=== PATIENT | male | born 1960 | race Two or more races ===

== ENCOUNTER 2017-07-08 12:28 | Observation (INO) | payer BC ==
--- NOTE | 2017-07-08 12:39 | EDPHY ---
HPI/HX/ROS/PE/MDM Narrative: CHIEF COMPLAINT: Left leg deformity after ski accident HISTORY OF PRESENT ILLNESS: The patient is a 57 y/o male arriving via EMS after a helmeted ski accident this afternoon. He was skiing at [place] when his left ski got caught. His leg twisted and broke. It originally was at a 90 degree angle. He was able to straighten it. He was in 10 out of 10 pain but improved slightly with pain medication. He denies striking his head, headache, neck pain, chest pain, difficulty breathing, any other injuries, or any other associated symptoms. He does not take anticoagulants. Patient was otherwise well prior to the event. He currently denies any chest pain or shortness of breath. No headache. No nausea or vomiting. No abdominal complaints. No upper extremity pain. REVIEW OF SYSTEMS: Aside from elements discussed in the HPI, a comprehensive 10-point review of systems was reviewed and is negative. PAST MEDICAL HISTORY: Fracture right patella in 1990 SOCIAL HISTORY: Skier, lives in [place], works at [employer] VITAL SIGNS: Reviewed by me GENERAL: Well-developed, well-nourished, in no respiratory distress. Clearly in pain. HEENT: Atraumatic. Face is atraumatic. Eyes: MIGUEL, EOMI. No icterus, no injection. Mouth: moist mucous membranes. No erythema or lesions. Neck: supple with no adenopathy. Nontender to palpation. LUNGS: Clear to auscultation bilaterally, no wheezes, rhonchi or rales. CHEST: No chest wall tenderness. CARDIAC: Regular rate and rhythm, no rubs, murmurs or gallops. ABDOMEN: Soft, nontender, nondistended, bowel sounds normal. BACK: No CVA tenderness. EXTREMITIES: Left lower extremity with a visible tib-fib deformity. Significant swelling over the proximal tib-fib area. Abrasions and contusion noted. No open laceration. Distal pulses are 2+ dorsalis pedis and posterior tibial. NEURO: Alert and oriented, grossly nonfocal. SKIN: Warm and dry, no rash. PSYCHIATRIC: Normal mentation, no agitation. (Janett Vick) ED Course: The patient presents with an obvious tib-fib deformity after a ski accident. He denies any other issues. X-ray shows a spiral fracture to the upper 1/3 of the tibia and fibula. Dr. Koch, orthopedic surgery, was consulted. He requests CT scan. Plan for ex fix. Patient's fracture was splinted and aligned. Please see procedure note from GAURANG Ellison Patient was admitted to the orthopedic service for isolated lower extremity trauma. (Janett Vick) MDM: 1:25 p.m.: Phone consultation with Dr. Valadez who reviewed the patient's images remotely, he would like to take the patient to the operating room for an external fixation later today, requested CT imaging. Patient remains NPO since 5:00 a.m. Today. Patient will be splinted for comfort measures. Procedure: Splint A posterior Ortho Glass long leg splint was applied by ER orthotic technician. After application of the splint I returned and re-examined the patient. The splint was adequately immobilizing the joint and distal to the splint the patient's circulation and sensation were intact. Patient shows no signs of compartment syndrome. Ice packs applied to fracture site (Roger Emmanuel) - Data Points Imaging Results: Imaging Impressions Tibia/Fibula X-Ray 07/08/17 12:36 Impression: Proximal tibial and fibular shaft fractures. Suspect medial tibial spine unstable fracture. Chest X-Ray 07/08/17 13:13 Impression: No acute findings in the chest. Medications Given: Discontinued Medications Fentanyl (Sublimaze) 100 mcg IVP EDNOW ONE Stop: 07/08/17 13:00 Last Admin: 07/08/17 13:01 Dose: 100 mcg Hydromorphone HCl (Dilaudid) 1 mg IVP EDNOW ONE Stop: 07/08/17 13:14 Last Admin: 07/08/17 13:27 Dose: 1 mg Ondansetron HCl (Zofran) 4 mg IVP EDNOW ONE Stop: 07/08/17 13:15 Last Admin: 07/08/17 13:27 Dose: 4 mg General Initial Vital Signs: Initial Vital Signs Temperature (C) 36.7 C 07/08/17 13:03 Heart Rate 79 07/08/17 13:03 Respiratory Rate 18 07/08/17 13:03 Blood Pressure 132/77 H 07/08/17 13:03 O2 Sat (%) 95 07/08/17 13:03 O2 Delivery Mode Room Air Allergies/Adverse Reactions: No Known Allergies Allergy (Unverified 07/08/17 13:03) Home Medications: Medication Instructions Recorded Herbals/Supplements -Info Only 1 ea PO DAILY 07/08/17 Ibuprofen [Motrin (*)] 200 mg PO DAILY PRN 07/08/17 celeCOXIB [Celebrex (*)] 200 mg PO DAILY PRN 07/08/17 Departure - Departure Disposition: [facility] Acute Clinical Impression: Skiing accident Qualifiers: Encounter type: initial encounter Qualified Code(s): V00.328A - Other snow-ski accident, initial encounter Fracture of left tibia and fibula Qualifiers: Encounter type: initial encounter Fracture type: closed Qualified Code(s): S82.202A - Unspecified fracture of shaft of left tibia, initial encounter for closed fracture Condition: Fair Report Scribed for: Janett Vick Report Scribed by: Renata Mahmood Date of Report: 07/08/17 Time of Report: 13:10 Physician Review and Approval Statement: Portions of this note were transcribed by a biomedical field service engineer. I personally performed a history, physical exam, medical decision making, and confirmed accuracy of information the transcribed note.
[2017-07-08] MEDS ORDERED: fentaNYL 100 MCG/2 ML INJ ONE ×2 (12:47→17:17)
[2017-07-08] MEDS ORDERED: fentaNYL 100 MCG/2 ML INJ IVP ONE (12:59)
[2017-07-08] MEDS ORDERED: HYDROmorphONE/DILAUDID 1 MG/ML INJ IVP ONE (13:13)
[2017-07-08] MEDS ORDERED: ONDANSETRON 4 MG/2 ML VIAL IVP ONE (13:14)
[2017-07-08 14:17] LABS: PLATELET COUNT 206 10^3/uL (150-400)
--- NOTE | 2017-07-08 14:26 | CPEKG ---
Heart Rate: 71 RR Interval: 845 P-R Interval: 188 QRSD Interval: 82 QT Interval: 404 QTC Interval: 439 P [place]: 71 QRS [place]: 66 T Wave [place]: 54 EKG Severity - NORMAL ECG - EKG Impression: SINUS RHYTHM Electronically Signed By: Po Reyes 10-Jul-2017 07:19:30
[2017-07-08 14:28] LABS: INR 1.12 (0.83-1.16); PROTIME(PATIENT) 14.6 SEC (12.0-15.0)
[2017-07-08] MEDS ORDERED: ONDANSETRON DISINTEGRATING 4 MG TAB PO PRN (15:46)
--- NOTE | 2017-07-08 15:52 | CPEKG ---
Heart Rate: 69 RR Interval: 870 P-R Interval: 180 QRSD Interval: 80 QT Interval: 400 QTC Interval: 429 P [place]: 61 QRS [place]: 53 T Wave [place]: 36 EKG Severity - NORMAL ECG - EKG Impression: SINUS RHYTHM EKG Impression: Unchanged from 1424 Electronically Signed By: Po Reyes 08-Jul-2017 19:17:44
[2017-07-08] MEDS ORDERED: LR 1,000 ML IV SCH (16:00)
[2017-07-08] MEDS: ONDANSETRON 4 MG/2 ML VIAL IVP PRN (16:04)
[2017-07-08] MEDS ORDERED: ceFAZolin 2 GM/SWFI 2 GM/20 ML SYR IVP ONE (16:21)
[2017-07-08] MEDS ORDERED: LR 1,000 ML IV ONE (16:22)
[2017-07-08] MEDS ORDERED: BUPIVACAINE 0.5% 30 ML SDV ONE (16:39)
[2017-07-08] MEDS ORDERED: BACITRACIN 50,000 UNITS/10 ML SYR IRR ONE (16:40)
[2017-07-08] MEDS ORDERED: POLYMYXIN B SULFATE 500,000 UNIT/10 ML SYR IRR ONE (16:40)
[2017-07-08] MEDS ORDERED: PROPOFOL/EMULSION 500 MG/50 ML BOTTLE IV ONE (17:17)
[2017-07-08] MEDS ORDERED: MIDAZOLAM 2 MG/2 ML VIAL ONE (17:25)
[2017-07-08] MEDS ORDERED: SCOPOLAMINE HYDROBROMIDE 1 MG/3 DAYS PATCH TD ONE (17:25)
--- NOTE | 2017-07-08 17:31 | PDHPUP ---
History & Physical Update H&P update statement: This history and physical update is based on an assessment of the patient which was completed after admission or registration (within 24 hours), but prior to the surgery/procedure. H&P update: H&P reviewed & patient examined, no change in patient's condition since H&P completed
[2017-07-08] MEDS ORDERED: ACETAMINOPHEN 500 MG TAB PO PRN (18:11)
[2017-07-08] MEDS ORDERED: DEXAMETHASONE 4 MG/ML VIAL IVP PRN (18:11)
[2017-07-08] MEDS ORDERED: MEPERIDINE 25 MG/ML SYR IVP PRN (18:11)
[2017-07-08] MEDS ORDERED: OXYCODONE/APAP 5/325 TAB PO PRN (18:11)
[2017-07-08] MEDS ORDERED: fentaNYL 100 MCG/2 ML INJ IVP PRN (18:11)
[2017-07-08] MEDS ORDERED: ONDANSETRON 4 MG/2 ML VIAL IVP PRN (18:11)
[2017-07-08] MEDS ORDERED: HYDROCODONE/APAP 5/325 TAB PO PRN (18:11)
[2017-07-08] MEDS ORDERED: ALBUTEROL 3 ML DEYVIAL IH PRN (18:11)
[2017-07-08] MEDS ORDERED: PROMETHAZINE HCL 25 MG/ML INJ IVP PRN (18:11)
[2017-07-08] MEDS ORDERED: NALOXONE HCL 0.4 MG/ML INJ IVP PRN (18:11)
[2017-07-08] MEDS ORDERED: METOCLOPRAMIDE 10 MG/2 ML VIAL IVP PRN (18:11)
[2017-07-08] MEDS ORDERED: LR 500 ML IV PRN (18:11)
--- NOTE | 2017-07-08 18:11 | PDANEPAE ---
ANE Past Medical History - Pulmonary History Hx Oxygen in Use at Home: No Hx Sleep Apnea: No Sleep Apnea Screening Result - Last Documented: Negative - Endocrine History Hx Diabetes: No - Chronic Pain History Chronic Pain: No ANE Review of Systems Review of Systems: ANE Patient History - Allergies Allergies/Adverse Reactions: No Known Allergies Allergy (Unverified 07/08/17 13:03) - Home Medications Home Medications: Herbals/Supplements -Info Only 1 ea PO DAILY 07/08/17 [Last Taken Unknown] Ibuprofen [Motrin (*)] 200 mg PO DAILY PRN 07/08/17 [Last Taken Unknown] celeCOXIB [Celebrex (*)] 200 mg PO DAILY PRN 07/08/17 [Last Taken Unknown] - NPO status NPO Since - Liquids (Date): 07/08/17 NPO Since - Liquids (Time): 08:00 NPO Since - Solids (Date): 07/08/17 NPO Since - Solids (Time): 05:00 - Smoking Hx Smoking Status: Never smoked ANE Labs/Vital Signs - Labs Result Diagrams: 07/08/17 14:07 07/08/17 14:07 - Vital Signs Blood Pressure: 113/59 Heart Rate: 77 Respiratory Rate: 18 O2 Sat (%): 94 Height: 172.72 cm Weight: 74.843 kg ANE Physical Exam - Airway Neck exam: FROM Mallampati Score: Class 1 Mouth exam: normal dental/mouth exam, donohue - Pulmonary Pulmonary: no respiratory distress, no rales or rhonchi, clear to auscultation - Cardiovascular Cardiovascular: regular rate and rhythym, no murmur, rub, or gallop - ASA Status ASA Status: I, E ANE Anesthesia Plan Anesthesia Plan: GA w LMA
[2017-07-08] MEDS ORDERED: RANITIDINE 50 MG/2 ML VIAL ONE (18:30)
[2017-07-08] MEDS ORDERED: LIDOCAINE 2% 5 ML SDV ONE (18:30)
[2017-07-08] MEDS ORDERED: METOCLOPRAMIDE 10 MG/2 ML VIAL ONE (18:30)
[2017-07-08] MEDS ORDERED: ONDANSETRON 4 MG/2 ML VIAL ONE (18:30)
[2017-07-08] MEDS ORDERED: KETOROLAC 30 MG/1 ML SDV ONE (18:30)
[2017-07-08] MEDS: ceFAZolin 2 GM/SWFI 2 GM/20 ML SYR IVP SCH (21:48)
[2017-07-08] MEDS: oxyCODONE IR 5 MG TAB PO PRN (21:55)
[2017-07-08] MEDS: ACETAMINOPHEN 325 MG TAB PO PRN (21:56)
[2017-07-08] MEDS ORDERED: ceFAZolin 2 GM/DEXTROSE 100 ML IV SCH (22:00)
--- NOTE | 2017-07-09 02:08 | GCON ---
[f rep st] CONSULTATION DATE OF CONSULTATION: 07/08/2017 CHIEF COMPLAINT: Left leg injury. HISTORY OF PRESENT ILLNESS: This is a 57-year-old male, who sustained this injury while skiing at [place]. He lost a ski and then slid and struck a tree. The patient noticed immediate pain and deformity, and was then taken to the [facility] ER for further care. I was called to consult for Dr. Vick. REVIEW OF SYSTEMS: Aside from what was noted in the HPI, 10-point review of systems is negative. PAST MEDICAL HISTORY: He has a history of a right patellar fracture in 1990. Otherwise, he is healthy. SOCIAL HISTORY: Denies drug use. 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 OBJECTIVE: VITAL SIGNS: Stable. GENERAL: In no apparent distress. LUNGS: Chest rise equal and unlabored bilaterally. CARDIAC: 2+ DP pulse. EXTREMITIES : Left leg: The skin is intact over the proximal tibia with moderate swelling. There is loss of skin wrinkling; however, the compartments are compressible with tenderness to palpation. He has intact EHL, FHL, gastroc soleus, and tib ant. Sensation intact throughout the foot. He has a 2+ DP pulse. No pain with any passive stretch. IMAGING DATA: The x-rays shows a proximal tibia and fibular shaft fracture. There is a fracture extending to the plateau on lateral views. I requested a CT scan for further evaluation of this fracture pattern. There is a fracture line extending into the lateral plateau and into the tibial spine. ASSESSMENT AND PLAN: Left proximal tibia shaft fracture with extension to the plateau with soft tissue swelling. This is a high-energy injury. External fixation indicated for soft tissue rest. I discussed possible transfer of care for definitive surgery with an orthopedic colleague. He will be admitted to my service for intravenous pain control and observation for compartment syndrome, and he will be taken emergently into the operating room for external fixation. /[id number]/MODL MTDD
[2017-07-09] MEDS: ACETAMINOPHEN 325 MG TAB PO PRN ×3 (04:18→13:39)
[2017-07-09] MEDS: oxyCODONE IR 5 MG TAB PO PRN ×5 (04:19→21:32)
[2017-07-09] MEDS: ceFAZolin 2 GM/SWFI 2 GM/20 ML SYR IVP SCH ×2 (05:42→13:40)
[2017-07-09] MEDS: ENOXAPARIN 40 MG/0.4 ML SYR SC SCH (08:39)
--- NOTE | 2017-07-09 08:46 | SOAPPROG ---
SOAP Progress Note Assessment/Plan: Assessment: POD #1 s/p L leg external fixation -doing well this morning, pain is much improved -no signs of compartment syndrome Plan: -pain ctrl -PT -dvt prophy w/ Shady -will discuss w/ Dr. Lama regarding timing of definitive fixation. Will either perform during this hospitalization vs d/c'ing home and returning at a scheduled time. 07/09/17 08:46 07/09/17 08:50 Subjective: Doing well this morning. Not having much pain. No issues per nursing staff. Objective: Vital Signs Temp Pulse Resp BP Pulse Ox 37.1 C 74 16 97/45 L 90 L 07/09/17 07:20 07/09/17 07:20 07/09/17 07:20 07/09/17 07:20 07/09/17 07:20 Laboratory Results 07/08/17 14:07 07/08/17 14:07 07/08/17 07/09/17 07/10/17 05:59 05:59 05:59 Intake Total 0 Output Total 285 300 Balance 1765 -300 PT 14.6 SEC (12.0-15.0) 07/08/17 14:07 INR 1.12 (0.83-1.16) 07/08/17 14:07 Gen: lying in bed comfortably, NAD L leg -pin sites clean, ex-fix in place -mod swelling prox tibia -intact EHL/FHL/GS/TA -SILT foot -2+ dp pulse -no pain with passive stretch ICD10 Worksheet Patient Problems: Problems Problem Status Onset Fracture of left tibia and fibula Acute Skiing accident Acute
--- NOTE | 2017-07-09 09:07 | POSTANESTH ---
Post Anesthetic Evaluation Cardiovascular Status: Normal, Stable Respiratory Status: Normal, Stable Level of Consciousness/Mental Status: Mildly Sleepy, Arousable Pain Control: Adequate, Prn Tx Ordered Nausea/Vomiting Control: Adequate, Prn Tx Ordered Complications Possibly Related to Anesthesia: None Noted
--- NOTE | 2017-07-09 14:25 | GOP ---
[f rep st] OPERATIVE REPORT DATE OF OPERATION: 07/08/2017 SURGEON: Thomas Valadez MD PREOPERATIVE DIAGNOSIS: Left proximal tibia and fibula shaft fractures with extension into the tibial plateau. POSTOPERATIVE DIAGNOSIS: Left proximal tibia and fibula shaft fractures with extension into the tibial plateau. PROCEDURE PERFORMED: Placement of unilateral external fixator in the left knee for proximal tibial and fibular fracture. FINDINGS: ESTIMATED BLOOD LOSS: 10 cc. INDICATIONS: The patient is a 57-year-old male who sustained the above injury while skiing today at [place]. He was skiing in the trees, lost a ski, and struck a tree with the left leg. He felt immediate pain and noticed immediate deformity. He was then taken to [facility] ER. He was seen and evaluated by the ER staff. I was called to consult. I recommended CT scan to evaluate the possible plateau split. I spoke to the patient in the preoperative unit. He had significant soft tissue swelling about the proximal tibia, and this is a complex intra-articular fracture that will likely required plating. An external fixator is indicated to allow for soft tissue rest while holding the fracture out to length. I discussed with him the risks and benefits. The risks include pain, bleeding, infection, pin site infection, fracture, need for further operations. The patient understood the risks and wished to proceed. DESCRIPTION OF PROCEDURE: Patient was seen in preoperative holding area and given the opportunity to ask any questions. All of his questions were answered. Consent was signed. He was taken to the operative suite. Care was taken to transfer the patient from [facility] to operating table. Care was taken to pad all bony prominences. General anesthesia was induced by the anesthesia team. Time- out was called including the anesthesia team confirming the surgical site and procedure to be performed. Two grams of Ancef were given prior to incision. The left lower extremity was prepped and draped in the usual sterile fashion. Fluoroscopy unit was then used to sandra out the most distal extent of the fracture site, and then enough space was given more distally so that the pins would be out of the wound and away from the incision. I marked the site for the tibial pin and the marking sites for the TR pins. I placed 2 pins in the tibia. Prior to doing so, an incision was made in the skin. This was spread with a Nadya down to bone. I made sure that all structures were protected. The pin was placed and its length checked under fluoroscopy. The same was done with the femur. These were then connected with 2 bars, which were connected to each other. Traction was then pulled on the fracture bringing it out to length. The construct was then tightened. The pins were cut short and caps placed. Dressings were placed over the pin sites. Patient tolerated procedure well, was taken to the PACU in stable condition. IMPLANTS USED: Synthes large XFix system. POSTOPERATIVE CONDITION: Stable. POSTOPERATIVE PLAN: Preoperatively I discussed with an orthopedic colleague about possible transfer of care for this complex fracture. We will coordinate care while the patient is admitted for postoperative IV pain control and observation for compartment syndrome. /[id number]/MODL MTDD
--- NOTE | 2017-07-09 15:23 | ASMTCMCOM ---
CM Note CM Note Notes: Patient admitted with a tib-fib fracture from a skiing accident. He is POD #1 L leg external fixation. Today, it was decided that he will go home tomorrow and return to [facility] 07/15 for further fixation. Patient lives independently with his partner. His daughter is flying in tomorrow. He has support at home, and we will assess him for discharge needs after his next surgery. Date Signed: 07/09/2017 03:23 PM Electronically Signed By:Jessica Granger RN
--- NOTE | 2017-07-09 15:50 | GCON ---
[f rep st] CONSULTATION REASON FOR CONSULTATION: Left tibia fracture. HISTORY OF PRESENT ILLNESS/REASON FOR CONSULTATION: The patient is a 57-year-old who sustained a fal l yesterday, resulting in a displaced left tibial plateau fracture. He was evaluated by Dr. Valadez, who applied a spanning external fixator to provisionally stabilize the fracture. Based on the amount of swelling present, but it was determined that it would be prudent to delay any definitive management (ORIF) until soft-tissue envelope had stabilized. I was asked by Dr. Valadez to evaluate this patient fo r further operative treatment. PHYSICAL EXAMINATION: There is a very well placed, spanning, femoral-tibial external fixator anterio rly. There is diffuse swelling along the proximal lower leg with minimal skin wrinkling. There is n o evidence of compartment syndrome. Distal neurovascular exam is intact. IMAGING: Radiographs and CT showed evidence of a complex proximal tibia fracture with some extension into the lateral joint line. ASSESSMENT: Left tibial plateau fracture. PLAN: Based on the nature of the fracture pattern, it was recommended that operative treatment consi sting of open reduction/internal fixation be pursued. This will be delayed until the soft-tissue swe lling has stabilized (early next week). The patient can be discharged home and brought back as an ou tpatient for definitive management. /[id number]/MODL
[2017-07-09] MEDS: ONDANSETRON 4 MG/2 ML VIAL IVP PRN (16:58)
[2017-07-10] MEDS: ACETAMINOPHEN 325 MG TAB PO PRN (00:16)
[2017-07-10] MEDS: oxyCODONE IR 5 MG TAB PO PRN ×3 (01:25→11:14)
--- NOTE | 2017-07-10 05:58 | SOAPPROG ---
SOAP Progress Note Assessment/Plan: Assessment: L Tib Plateau fx Pain tolerable on po meds Dayo po LLE Ex fix intact Distal NVI No sign compartment syndrome Plan: Probable D/C home today Return next week for ORIF 07/10/17 05:56 Objective: Vital Signs Temp Pulse Resp BP Pulse Ox 36.6 C 60 15 96/60 L 90 L 07/10/17 04:00 07/10/17 04:00 07/10/17 04:00 07/10/17 04:00 07/10/17 04:00 Laboratory Results 07/08/17 14:07 07/08/17 14:07 07/08/17 07/09/17 07/10/17 05:59 05:59 05:59 Intake Total 2050 500 Output Total 285 800 Balance 1765 -300 PT 14.6 SEC (12.0-15.0) 07/08/17 14:07 INR 1.12 (0.83-1.16) 07/08/17 14:07 ICD10 Worksheet Patient Problems: Problems Problem Status Onset Fracture of left tibia and fibula Acute Skiing accident Acute
[2017-07-10 07:14] VITALS: BP 95/50; PULSE 64; RESP 14; TEMP 98.5; O2SAT 95
[2017-07-10] MEDS: ENOXAPARIN 40 MG/0.4 ML SYR SC SCH (08:42)
--- NOTE | 2017-07-10 09:50 | ASMTLACE ---
[facility] Length of stay for Answers: 1 day current admission Acuity / Level of Answers: No Care: Did the patient have an inpatient admission? # of Emergency department Answers: 0 visits in the last 6 months Score: 1 Date Signed: 07/10/2017 09:50 AM Electronically Signed By:Lisa Pickard RN
--- NOTE | 2017-07-14 13:14 | GDS ---
[f rep st] DISCHARGE SUMMARY ADMISSION DIAGNOSIS: Proximal tibia fracture. DISCHARGE DIAGNOSIS: Proximal tibia fracture. OPERATIONS PERFORMED: On July 08, patient had application of external fixator. HISTORY RELATIVE TO THE ADMISSION: The patient is a 57-year-old, who sustained a fall skiing, result ing in a proximal tibia fracture. HOSPITAL COURSE: He was taken to the operating room by Dr. Hatfield or stan, where application of a spanning external fixator was performed. The patient had favorable reduction of his fracture. Hi s postoperative course was unremarkable. He was kept nonweightbearing. Pain management was well con trolled. On 07/10, he was discharged home in stable condition. PLAN: Discharge home. Diet regular. Nonweightbearing, left lower extremity. Patient will follow u p in approximately 1 week for definitive open reduction, internal fixation. /[id number]/MODL
== END 2017-07-10 11:53 | disposition home or self-care (01) ==
LOC: EDUNIT# → F3N 14:46
PROVIDERS: ADMIT Orthopaedic Surgery Hand Surgery; ATTEND Orthopaedic Surgery Hand Surgery
PROC: 2W3MX1Z Immobilization of Left Lower Extremity using Splint (ICD-10-PCS; 2017-07-08)
PROC: BQ1FZZZ Fluoroscopy of Left Lower Leg (ICD-10-PCS; 2017-07-08)
PROC: 0QSH3BZ Reposition Left Tibia with Monoplanar External Fixation Device, Percutaneous Approach (ICD-10-PCS; principal; 2017-07-08 17:00)
DX: S82.242A Displaced spiral fracture of shaft of left tibia, initial encounter for closed fracture (principal); S82.292A Other fracture of shaft of left tibia, initial encounter for closed fracture; S82.442A Displaced spiral fracture of shaft of left fibula, initial encounter for closed fracture; V00.328A Other snow-ski accident, initial encounter; Y93.23 Activity, snow (alpine) (downhill) skiing, snowboarding, sledding, tobogganing and snow tubing; Y92.838 Other recreation area as the place of occurrence of the external cause
CPT/HCPCS: 27756; 29505; 71045; 73590; 73700; 76001; 93005; 96374; 96375; 97116; 97161; 97165; 99285; G0378; C1713; J0690; J1170; J1650; J1885; J2250; J2270; J2405; J2704; J2765; J2780; J3010

== ENCOUNTER 2017-07-15 09:46 | Observation (INO) | payer BC ==
[~2017-07-15 09:46] MED LIST: BUPIVACAINE/EPI 0.5% 30 ML SDV ONE; LIDOCAINE 1% 2 ML INJ ID PRN; LR 1,000 ML IV ONE
[2017-07-15] MEDS ORDERED: PROPOFOL 200 MG/20 ML VIAL ONE (10:04)
[2017-07-15] MEDS ORDERED: ONDANSETRON 4 MG/2 ML VIAL ONE (10:04)
[2017-07-15] MEDS ORDERED: ROCURONIUM 50 MG/5 ML VIAL ONE (10:04)
[2017-07-15] MEDS ORDERED: HYDROmorphONE/DILAUDID 2 MG/ML INJ ONE ×3 (10:04→14:12)
[2017-07-15] MEDS ORDERED: DEXAMETHASONE 4 MG/ML VIAL ONE (10:04)
[2017-07-15] MEDS ORDERED: fentaNYL 100 MCG/2 ML INJ ONE ×5 (10:04→14:12)
[2017-07-15] MEDS ORDERED: LIDOCAINE 2% 5 ML SDV ONE (10:04)
[2017-07-15] MEDS ORDERED: ceFAZolin 2 GM/DEXTROSE 100 ML IV ONE (10:11)
[2017-07-15] MEDS ORDERED: SCOPOLAMINE HYDROBROMIDE 1 MG/3 DAYS PATCH TD ONE (10:11)
--- NOTE | 2017-07-15 10:11 | PDHPUP ---
History & Physical Update H&P update statement: This history and physical update is based on an assessment of the patient which was completed after admission or registration (within 24 hours), but prior to the surgery/procedure. H&P update: H&P reviewed & patient examined
[2017-07-15] MEDS ORDERED: MIDAZOLAM 2 MG/2 ML VIAL IVP ONE (10:12)
[2017-07-15] MEDS ORDERED: NALOXONE HCL 0.4 MG/ML INJ IVP PRN ×2 (10:15→12:50)
[2017-07-15] MEDS ORDERED: MAGNESIUM HYDROXIDE 30 ML UDCUP PO PRN (10:15)
[2017-07-15] MEDS ORDERED: BISACODYL 10 MG SUPP PR PRN (10:15)
[2017-07-15] MEDS ORDERED: ONDANSETRON 4 MG/2 ML VIAL IVP PRN ×2 (10:15→12:50)
[2017-07-15] MEDS ORDERED: LACTULOSE 20 GM/30 ML UDCUP PO PRN (10:15)
[2017-07-15] MEDS ORDERED: TEMAZEPAM 15 MG CAP PO PRN (10:15)
[2017-07-15] MEDS ORDERED: morphINE PCA 30 MG/30 ML PCA IV PRN (10:15)
[2017-07-15] MEDS ORDERED: PROMETHAZINE HCL 25 MG/ML INJ IVP PRN ×2 (10:15→12:50)
[2017-07-15] MEDS ORDERED: ceFAZolin 2 GM/SWFI 2 GM/20 ML SYR IVP ONE (10:15)
[2017-07-15] MEDS ORDERED: POLYETHYLENE GLYCOL 3350 17 GM PKT PO PRN (10:15)
[2017-07-15] MEDS ORDERED: D5W 1/2 NS W/ 20 KCl/L 1,000 ML IV SCH (10:15)
[2017-07-15] MEDS ORDERED: HYDROCODONE/APAP 5/325 TAB PO PRN (10:15)
--- NOTE | 2017-07-15 10:15 | PDANEPAE ---
ANE History of Present Illness LEFT TIBIAL PLATEAU FRACTURE ANE Past Medical History - Cardiovascular History Hx Hypertension: No Hx Arrhythmias: No Hx Chest Pain: No Hx Coronary Artery / Peripheral Vascular Disease: No Hx CHF / Valvular Disease: No Hx Palpitations: No - Pulmonary History Hx COPD: No Hx Asthma/Reactive Airway Disease: No Hx Recent Upper Respiratory Infection: No Hx Oxygen in Use at Home: No Hx Sleep Apnea: No Sleep Apnea Screening Result - Last Documented: Negative - Neurologic History Hx Cerebrovascular Accident: No Hx Seizures: No Hx Dementia: No - Endocrine History Hx Diabetes: No - Renal History Hx Renal Disorders: No - Liver History Hx Hepatic Disorders: No - Neurological & Psychiatric Hx Hx Neurological and Psychiatric Disorders: No - Cancer History Hx Cancer: No - Congenital Disorder History Hx Congenital Disorders: No - GI History Hx Gastrointestinal Disorders: No - Chronic Pain History Chronic Pain: No - Surgical History Prior Surgeries: 07/08/17 external fixator placed on left tibia by Rog. marquez T&A DENNIS Review of Systems Review of Systems: - Exercise capacity METS (RN): 6 METS ANE Patient History - Allergies Allergies/Adverse Reactions: No Known Allergies Allergy (Verified 07/14/17 12:33) - Home Medications Home Medications: Oxycodone HCl 10 mg PO Q4H PRN 07/14/17 [Last Taken 07/15/17] - NPO status NPO Since - Liquids (Date): 07/15/17 NPO Since - Liquids (Time): 03:00 NPO Since - Solids (Date): 07/14/17 NPO Since - Solids (Time): 22:00 - Smoking Hx Smoking Status: Never smoked - Family Anes Hx Family Hx Anesthesia Complications: none ANE Labs/Vital Signs - Vital Signs Blood Pressure: 125/80 Heart Rate: 78 Respiratory Rate: 18 O2 Sat (%): 93 Height: 172.72 cm Weight: 74.843 kg ANE Physical Exam - Airway Neck exam: FROM Mallampati Score: Class 1 Mouth exam: normal dental/mouth exam - Pulmonary Pulmonary: no respiratory distress - Cardiovascular Cardiovascular: regular rate and rhythym - ASA Status ASA Status: II ANE Anesthesia Plan Anesthesia Plan: general endotracheal anesthesia Regional Anesthesia: adductor canal FNB
--- NOTE | 2017-07-15 10:15 | POSTOPPROG ---
Post Op Note Date of Operation: 07/15/17 Surgeon: Martin Lama Anesthesia: GET(General Endotracheal) Pre-op Diagnosis: L tibial plateau Post-op Diagnosis: same Procedure: ORIF L tibial plateau fx Inf/Abcess present in the surg proc area at time of surgery?: No EBL: Minimal
[2017-07-15] MEDS ORDERED: ROPIVACAINE HCL 150 MG/30 ML INJ ONE (10:25)
[2017-07-15] MEDS ORDERED: HYDROmorphONE/DILAUDID 1 MG/ML INJ IVP PRN (12:50)
--- NOTE | 2017-07-15 13:09 | POSTANESTH ---
Post Anesthetic Evaluation Cardiovascular Status: Normal, Stable Respiratory Status: Normal, Stable Level of Consciousness/Mental Status: Can Participate in Eval Pain Control: Adequate, Prn Tx Ordered Nausea/Vomiting Control: Adequate, Prn Tx Ordered Complications Possibly Related to Anesthesia: None Noted
[2017-07-15] MEDS: fentaNYL 100 MCG/2 ML INJ IVP PRN ×5 (13:13→14:17)
[2017-07-15] MEDS: HYDROmorphONE/DILAUDID 2 MG/ML INJ IVP PRN ×6 (13:13→14:18)
[2017-07-15] MEDS ORDERED: ceFAZolin 2 GM/DEXTROSE 100 ML IV SCH (14:00)
[2017-07-15] MEDS ORDERED: oxyCODONE IR 5 MG TAB ONE (14:11)
[2017-07-15] MEDS: oxyCODONE IR 5 MG TAB PO PRN ×3 (14:15→20:09)
[2017-07-15] MEDS: ceFAZolin 2 GM/SWFI 2 GM/20 ML SYR IVP SCH (17:26)
[2017-07-15] MEDS ORDERED: HYDROmorphONE/DILAUDID 6 MG/30 ML PCA IV PRN (18:17)
[2017-07-15] MEDS: SENNOSIDES/DOCUSATE SODIUM TAB PO SCH (20:08)
[2017-07-16 02:05] VITALS: RESP 16
[2017-07-16] MEDS: ceFAZolin 2 GM/SWFI 2 GM/20 ML SYR IVP SCH (02:13)
[2017-07-16] MEDS: oxyCODONE IR 5 MG TAB PO PRN ×3 (02:15→12:01)
--- NOTE | 2017-07-16 05:51 | SOAPPROG ---
SOAP Progress Note Assessment/Plan: Assessment: S/P ORIF R tibial plateau fx Pain now controlled krzysztof po +U/O Dressing intact, no D/C Tib and peroneal nn intact to motor/sensory No sign compartment syndrome Plan: OOB/PT Poss D/C based on pain 07/16/17 05:50 Objective: Vital Signs Temp Pulse Resp BP Pulse Ox 36.9 C 70 16 105/58 L 90 L 07/16/17 04:00 07/16/17 04:00 07/16/17 04:00 07/16/17 04:00 07/16/17 04:00 07/14/17 07/15/17 07/16/17 05:59 05:59 05:59 Intake Total 2750 Output Total 2450 Balance 300 ICD10 Worksheet Patient Problems: Problems Problem Status Onset Fracture of left tibia and fibula Acute Skiing accident Acute
[2017-07-16] MEDS: SENNOSIDES/DOCUSATE SODIUM TAB PO SCH (08:12)
[2017-07-16] MEDS ORDERED: PATCH REMOVAL 1 EA PATCH TD ONE (10:12)
[2017-07-16 10:14] VITALS: O2SAT 89
[2017-07-16 11:59] VITALS: BP 136/62; PULSE 71; TEMP 99.8
--- NOTE | 2017-07-16 12:12 | ASMTCMCOM ---
CM Note CM Note Notes: Pt s/p ORIF R tibial plateau fx. PT rec home. Pt medically stable for d/c, no CM d/c needs identified. Date Signed: 07/16/2017 12:11 PM Electronically Signed By:DENNYS Payne
--- NOTE | 2017-07-16 13:54 | GOP ---
[f rep ] OPERATIVE REPORT DATE OF OPERATION: 07/15/2017 SURGEON: Martin Lama MD ANESTHESIA: General plus adductor canal nerve block performed by the anesthesiologist at my request for postoperative pain management PREOPERATIVE DIAGNOSIS: 1. Left tibial plateau fracture. 2. Left proximal diaphyseal tibial fracture. POSTOPERATIVE DIAGNOSIS: 1. Left tibial plateau fracture. 2. Left proximal diaphyseal tibial fracture. PROCEDURE PERFORMED: 1. Open reduction, internal fixation left tibial plateau fracture. 2. Open reduction, internal fixation left proximal tibia fracture. 3. Intraoperative use fluoroscopy. FINDINGS: ESTIMATED BLOOD LOSS: Minimal. INDICATIONS: Patient is the 57-year-old, who approximately 1 week prior sustained a proximal tibia f racture while skiing. He underwent provisional spanning external fixation. Based on the displaced u nstable nature of his injury, it was recommended that definitive treatment consisting of open reducti on, internal fixation be pursued. The patient acknowledged he understood the potential risks of the operation including but not limited to bleeding, infection, neurovascular damage, limb loss, limited limb function, malunion, nonunion, need for hardware removal, pain or functional limitations despite operative treatment, and anesthetic risks. He acknowledged he understood the potential risks, planne d procedure, and postoperative plan well, and had all questions answered prior to surgery. He gave h is consent for the operative procedure. DESCRIPTION OF PROCEDURE: Technique: The patient was brought to the operating room after IV antibio tics were administered. Adductor canal nerve block was performed by the anesthesiologist at my [facility] for postoperative pain management. Tourniquet was placed on the left thigh, bump underneath the l eft hip and shoulder, and left lower extremity including the external fixator was prepped and draped in standard sterile fashion. A portion of the external fixator was taken off. An incision was made just lateral to the anterior crest of the tibia, curving gently posteriorly as it crossed the knee. Skin and subcutaneous tissue were sharply incised. The anterior compartment fascia was incised just lateral to the crest of the tibia, and the anterior compartment musculature was reflected posteriorly , gaining exposure to the proximal tibia. The external fixator was further loosened. Utilizing a se rrated reduction clamp the oblique split fracture plane was provisionally reduced. Reduction was con firmed both clinically and fluoroscopically. Provisional fixation was accomplished with a 3.5 mm cor tical screw placed in lag fashion in an anterior to posterior direction across the fracture plane. S panning plate fixation across the fracture as well as securing the lateral split of the tibial platea u was then performed. A 14 hole 4.5 mm lateral tibial plateau plate ([employer]) was bent to fit the pr oximal tibia. This was slid extraperiosteally, with position confirmed. The plate was secured to th e proximal tibia with a 4.5 mm bicortical screw just proximal to the fracture plane. Fixation across the split plateau fragment was then performed. A 3.5 mm cortical screw was placed in lag fashion th rough the plate across the fracture plane. Two additional 5.0 mm cortical locking screws were placed . A supplemental 4.5 mm nonlocking screw was then placed in one of the more proximal holes of the pl ate. Fluoroscopic views confirmed anatomic joint alignment and favorable hardware placement. Distal fixation was then accomplished. Through the primary incision a 5.0 mm bicortical locking screw was placed in the plate. Two additional 5.0 mm cortical locking screws were placed; one in the most dist al hole of the plate, one between the 2 other screws. These were placed through small incisions unde r fluoroscopic guidance. Dissection was carried down to the plate with a fine-tipped hemostat, takin g care to avoid damage to the peroneal nerve during screw placement. The external fixator and pins w ere completely removed. Fluoroscopic views confirmed favorable reduction and hardware placement. Attention was directed toward closure. The deep fascia layer was closed with 2-0 Vicryl suture in in terrupted fashion. Subcutaneous tissue closed with 3-0 Vicryl suture in interrupted fashion. Skin c losed with a combination of mariana and 3-0 nylon interrupted vertical mattress sutures. The tourniq uet was deflated after closure of the deep fascial layer with no untoward bleeding being seen. The w ounds were dressed with sterile Adaptic, 4 x 4, Kerlix, and an Eduar wrap. Patient tolerated the proce dure well, and was taken to the recovery room, extubated, in stable condition postoperatively. All s ponge, needle, and instrument counts were reported as being correct. DRAINS: None. COMPLICATIONS: None. PLAN: Patient will be admitted for overnight observation and IV pain management. /[id number]/[id number]
== END 2017-07-16 13:23 | disposition home or self-care (01) ==
LOC: F3N 09:46
PROVIDERS: ADMIT Orthopaedic Surgery Foot and Ankle Surgery; ATTEND Orthopaedic Surgery Foot and Ankle Surgery
PROC: 0QSH04Z Reposition Left Tibia with Internal Fixation Device, Open Approach (ICD-10-PCS; principal; 2017-07-15 11:00)
DX: S82.142A Displaced bicondylar fracture of left tibia, initial encounter for closed fracture (principal); V00.328A Other snow-ski accident, initial encounter; Y93.23 Activity, snow (alpine) (downhill) skiing, snowboarding, sledding, tobogganing and snow tubing; Y92.838 Other recreation area as the place of occurrence of the external cause
CPT/HCPCS: 27536; 76001; 97116; 97161; 97165; G0378; C1713; J0690; J1100; J1170; J2250; J2270; J2405; J2704; J2795; J3010